=== PATIENT | female | born 1975 ===

== ENCOUNTER 2016-09-26 07:20 | Emergency (ER) | payer MEDICAID, OTHER ==
[2016-09-26 07:20] VITALS: BMI 21.5
[2016-09-26 07:28] VITALS: RESP 20; TEMP 98.1
[2016-09-26] MEDS ORDERED: Albuterol-Ipratrop 3 mg / 0.5 (3 ml) UD ONE (07:50)
[2016-09-26] MEDS ORDERED: Albuterol-Ipratrop 3 mg / 0.5 (3 ml) UD INH STA ×3 (08:13→08:15)
[2016-09-26] MEDS ORDERED: Sodium Chloride 0.9% 1,000 ML IV STA (08:14)
[2016-09-26 08:36] LABS: BASO # 0.1 K/uL (0.0-0.2); BASO % 0.7 % (0.0-2.0); EOS # 0.9 K/uL (0.0-0.7); EOS % 12.4 % (0.0-4.0); HEMATOCRIT 41.9 % (34.0-47.0); LYMPH # 1.5 K/uL (1.0-4.3); LYMPH % 19.6 % (20.0-40.0); MEAN CELL VOLUME 95.9 fl (81.0-99.0); MEAN CORPUSCULAR HEMOGLOBIN 32.5 pg (27.0-31.0); MEAN CORPUSCULAR HGB CONC 33.9 g/dL (33.0-37.0); MEAN PLATELET VOLUME 7.8 fl (7.2-11.7); MONO # 0.6 K/uL (0.0-0.8); NEUT # 4.5 K/uL (1.8-7.0); NEUT % 59.3 % (50.0-75.0); RED CELL DISTRIBUTION WIDTH 12.8 % (11.5-14.5); WHITE BLOOD COUNT 7.5 K/uL (4.8-10.8)
--- NOTE | 2016-09-26 08:56 | ED PDOC ---
HPI: General Adult Time Seen by Provider: 09/26/16 07:59 Chief Complaint (Nursing): Shortness Of Breath Chief Complaint (Provider): Shortness Of Breath History Per: Patient History/Exam Limitations: no limitations Onset/Duration Of Symptoms: Days (x2 weeks) Current Symptoms Are (Timing): Still Present Additional Complaint(s): 41 y/o female with a past medical history of Asthma presents to the emergency department with a complaint of difficulty breathing, shortness of breath, cough , sputum (clear), and itchiness of the chest x2 weeks. Reports using albuterol nebulizer and pump without the relief of symptoms; pain worsened since. States she had not received a flu shot or seen a doctor yet. Denies nausea, vomiting, chest pain, fever, and chills. PMD: Dr. Simone Sheffield MD Past Medical History Reviewed: Historical Data, Nursing Documentation, Vital Signs Vital Signs: Last Vital Signs Temp 98.1 F 09/26/16 08:00 Pulse 96 H 09/26/16 08:00 Resp 20 09/26/16 08:00 BP 117/81 09/26/16 08:00 Pulse Ox 96 09/26/16 08:59 - Medical History PMH: Asthma - Surgical History Surgical History: No Surg Hx - Family History Family History: States: Unknown Family Hx - Social History Current smoker - smoking cessation education provided: No Alcohol: None Drugs: Denies - Home Medications Home Medications: Ambulatory Orders Medication Instructions Recorded Nitrofurantoin Macrocrystals 100 mg PO BID #14 cap 09/19/14 [Macrobid] Phenazopyridine HCl [Pyridium] 100 mg PO TID #6 tab 09/19/14 Albuterol 1 puff IH Q4 PRN #1 inh 03/16/15 Prednisone 50 mg PO DAILY #4 tab 03/16/15 Albuterol HFA [Ventolin HFA 90 2 puff IH Q4H #1 puff 06/02/15 mcg/actuation (8 g)] Prednisone 10 mg PO TID #15 tab 06/02/15 Albuterol HFA [Ventolin HFA 90 2 puff IH [id number] PRN #0 puff 07/21/15 mcg/actuation (8 g)] Methylprednisolone [Medrol Dose 4 mg PO DAILY #21 mg 07/21/15 Pack (21 tabs)] Albuterol 0.083% [Albuterol 0.083% 2.5 mg IH Q8 PRN #100 neb 08/10/15 Inhal Loraine (2.5 mg/3 ml) UD] DiphenhydrAMINE [Benadryl] 2 tab PO Q4 PRN #24 cap 08/10/15 Famotidine [Pepcid] 20 mg PO BID #10 tab 08/10/15 Mask, Face [Nebulizer Aerosol Mask 1 dev XX PRN PRN #1 dev 08/10/15 Adult] Nebulizer [Aeroeclipse II] 1 each MC Q8 PRN #1 each 08/10/15 Promethazine/Codeine 5 ml PO Q12 PRN #100 ml 08/10/15 [Codeine/Promethazine 10 MG/5 Ml-6.25 MG/5 Ml] predniSONE [predniSONE Tab] 3 tab PO DAILY #15 tab 08/10/15 Albuterol Sulfate [Proair Hfa] 2 puff IH Q4H PRN #1 unit 09/26/16 predniSONE [predniSONE Tab] 40 mg PO DAILY #10 tab 09/26/16 - Allergies Allergies/Adverse Reactions: Allergies Allergy/AdvReac Type Severity Reaction Status Date / Time levofloxacin [From Levaquin] Allergy RASH Verified 09/26/16 07:59 Review of Systems ROS Statement: Except As Marked, All Systems Reviewed And Found Negative Constitutional: Negative for: Fever, Chills Cardiovascular: Positive for: Other (Itchiness chest sensation). Negative for: Chest Pain Respiratory: Positive for: Cough, Shortness of Breath, Sputum (Clear) Gastrointestinal: Negative for: Nausea, Vomiting Physical Exam - Reviewed Nursing Documentation Reviewed: Yes Vital Signs Reviewed: Yes - Physical Exam Appears: Positive for: Non-toxic, No Acute Distress Head Exam: Positive for: ATRAUMATIC, NORMOCEPHALIC Skin: Positive for: Normal Color, Warm, Dry Neck: Positive for: Normal, Supple Cardiovascular/Chest: Positive for: Regular Rate, Rhythm. Negative for: Murmur Respiratory: Positive for: Wheezing (b/l diffuse inspiratory and expiratory high pitch wheezing), Other (Mild labored breathing) Gastrointestinal/Abdominal: Positive for: Normal Exam, Soft. Negative for: Tenderness Extremity: Positive for: Normal ROM. Negative for: Pedal Edema, Swelling Neurologic/Psych: Positive for: Alert, Oriented - Laboratory Results Result Diagrams: 09/26/16 08:28 09/26/16 08:28 - ECG O2 Sat by Pulse Oximetry: 96 (RA) Pulse Ox Interpretation: Normal - Progress Condition: Re-examined, Improving,but remains with symptoms Medical Decision Making Medical Decision Making: Time: 7:59 Initial impression: Acute Asthma Attack Initial plan: --Basic Metabolic Panel --ED Urine (POC) --Duoneb 3 ml INH Stat --Duoneb 3 ml INH Stat --Duoneb 3 ml INH Stat --Methylprednisolone 125 mg IVP --Sodium Chloride 1,000 ml IV 1,000 mls/hr --IV Insertion (Saline Lock) --Peak Flow Pre/Post TX --Peak Flow Pre/Post TX --Revaluation Scribe Attestation: Documented by Gabbi Manriquez, acting as a scribe for Roxana Suresh MD. Provider Scribe Attestation: All medical record entries made by the Scribe were at my direction and personally dictated by me. I have reviewed the chart and agree that the record accurately reflects my personal performance of the history, physical exam, medical decision making, and the department course for this patient. I have also personally directed, reviewed, and agree with the discharge instructions and disposition. 9.40a - PF improved from 150 to 350 (within 70-90% of predicted). Will d/c Disposition - Clinical Impression Clinical Impression: Asthma attack - Patient ED Disposition Is Patient to be Admitted: No Doctor Will See Patient In The: Office Counseled Patient/Family Regarding: Diagnosis, Need For Followup, Rx Given - Disposition Referrals: Simone Sheffield MD [Family Provider] - Disposition: Routine/Home Disposition Time: 09:44 Condition: IMPROVED Prescriptions: Albuterol Sulfate [Proair Hfa] 2 puff IH Q4H PRN #1 unit PRN Reason: Wheezing predniSONE [predniSONE Tab] 40 mg PO DAILY #10 tab - POA Present On Arrival: None
[2016-09-26 08:57] LABS: BLOOD UREA NITROGEN 21 mg/dl (7-17); CALCIUM 8.9 mg/dL (8.4-10.2); CARBON DIOXIDE 19 mmol/L (22-30); CHLORIDE 109 mmol/L (98-107); GFR AFRICAN-AMERICAN > 60; POTASSIUM 4.4 MMOL/L (3.6-5.0); SODIUM 138 mmol/l (132-148)
[2016-09-26 09:04] LABS: GLUCOSE,RANDOM 97 mg/dL (65-105)
[2016-09-26 10:17] VITALS: BP 129/76; PULSE 98; O2SAT 98
== END 2016-09-26 10:10 | disposition home or self-care (01) ==
LOC: H.ER 07:20
DX: J45.909 Unspecified asthma, uncomplicated (principal); Z72.0 Tobacco use

== ENCOUNTER 2016-10-17 22:49 | Emergency (ER) | payer OTHER ==
[2016-10-17 22:50] VITALS: BMI 21.5
[2016-10-17 23:07] VITALS: BP 143/73; TEMP 98.2; O2SAT 97
[2016-10-17] MEDS ORDERED: Albuterol-Ipratrop 3 mg / 0.5 (3 ml) UD INH STA (23:28)
--- NOTE | 2016-10-17 23:33 | ED PDOC ---
HPI: SOB/CHF/COPD Time Seen by Provider: 10/17/16 23:14 Chief Complaint (Nursing): Shortness Of Breath History Per: Patient Additional Complaint(s): Pt. states when she went outside today she came in contact with pollen and she developed chest tightness and cough. States she's been taking her ProAir and albuterol neb treatments without relief. Denies hemoptysis, fever, hx of admissions for asthma, previous intubations. Past Medical History Reviewed: Historical Data, Nursing Documentation, Vital Signs Vital Signs: Last Vital Signs Temp 98.2 F 10/17/16 23:05 Pulse 68 10/17/16 23:37 Resp 16 10/17/16 23:17 BP 143/73 10/17/16 23:05 Pulse Ox 97 10/18/16 00:12 - Medical History PMH: Asthma - Family History Family History: States: No Known Family Hx - Home Medications Home Medications: Ambulatory Orders Medication Instructions Recorded Nitrofurantoin Macrocrystals 100 mg PO BID #14 cap 09/19/14 [Macrobid] Phenazopyridine HCl [Pyridium] 100 mg PO TID #6 tab 09/19/14 Albuterol 1 puff IH Q4 PRN #1 inh 03/16/15 Prednisone 50 mg PO DAILY #4 tab 03/16/15 Albuterol HFA [Ventolin HFA 90 2 puff IH Q4H #1 puff 06/02/15 mcg/actuation (8 g)] Prednisone 10 mg PO TID #15 tab 06/02/15 Albuterol HFA [Ventolin HFA 90 2 puff IH [id number] PRN #0 puff 07/21/15 mcg/actuation (8 g)] Methylprednisolone [Medrol Dose 4 mg PO DAILY #21 mg 07/21/15 Pack (21 tabs)] Albuterol 0.083% [Albuterol 0.083% 2.5 mg IH Q8 PRN #100 neb 08/10/15 Inhal Loraine (2.5 mg/3 ml) UD] DiphenhydrAMINE [Benadryl] 2 tab PO Q4 PRN #24 cap 08/10/15 Famotidine [Pepcid] 20 mg PO BID #10 tab 08/10/15 Mask, Face [Nebulizer Aerosol Mask 1 dev XX PRN PRN #1 dev 08/10/15 Adult] Nebulizer [Aeroeclipse II] 1 each MC Q8 PRN #1 each 08/10/15 Promethazine/Codeine 5 ml PO Q12 PRN #100 ml 08/10/15 [Codeine/Promethazine 10 MG/5 Ml-6.25 MG/5 Ml] predniSONE [predniSONE Tab] 3 tab PO DAILY #15 tab 08/10/15 Albuterol Sulfate [Proair Hfa] 2 puff IH Q4H PRN #1 unit 09/26/16 predniSONE [predniSONE Tab] 40 mg PO DAILY #10 tab 09/26/16 - Allergies Allergies/Adverse Reactions: Allergies Allergy/AdvReac Type Severity Reaction Status Date / Time levofloxacin [From Levaquin] Allergy RASH Verified 09/26/16 07:59 Review of Systems ROS Statement: Except As Marked, All Systems Reviewed And Found Negative Respiratory: Positive for: Shortness of Breath, Wheezing Physical Exam - Physical Exam Appears: Positive for: Well, Non-toxic, No Acute Distress (speaking in full sentences) Head Exam: Positive for: ATRAUMATIC, NORMAL INSPECTION, NORMOCEPHALIC Skin: Positive for: Normal Color, Warm. Negative for: Rash ENT: Positive for: Normal ENT Inspection. Negative for: Pharyngeal Erythema, Tonsillar Exudate, Tonsillar Swelling Neck: Positive for: Normal, Painless ROM Cardiovascular/Chest: Positive for: Regular Rate, Rhythm Respiratory: Positive for: Wheezing (b/l expiratory wheezing). Negative for: Decreased Breath Sounds, Accessory Muscle Use, Crackles, Rales, Rhonchi, Respiratory Distress Back: Positive for: Normal Inspection Extremity: Positive for: Normal ROM. Negative for: Calf Tenderness (b/l) Neurologic/Psych: Positive for: Alert, Oriented - ECG ECG: Positive for: Interpreted By [place] ECG Rhythm: Positive for: Sinus Rhythm. Negative for: ST/T Changes Rate: 68 O2 Sat by Pulse Oximetry: 97 Nebulizer Treatments/Peak Flow - Duonebs Number of Bronchodilator Doses given?: 3 - Steroid Treatment Steroid: Oral Disposition - Clinical Impression Clinical Impression: Bronchospasm - Patient ED Disposition Is Patient to be Admitted: Transfer of Care (Signed out to Radha HEREDIA pending CXR and re-evaluation.) - Disposition Disposition Time: 00:00 Condition: STABLE
[2016-10-17 23:37] VITALS: PULSE 68
[2016-10-17 23:45] VITALS: RESP 16
--- NOTE | 2016-10-18 00:12 | ED PDOC ---
- ECG O2 Sat by Pulse Oximetry: 97 Pulse Ox Interpretation: Normal - Other Rad CXR X-Ray: Interpreted by Me, Viewed By Me X-Ray Interpretation: no acute finding Medical Decision Making Medical Decision Making: Case was signed out to automobile and property underwriter from [employer] pending CXR. CXR is negative. Patient feels better after treatments given in ED. Prescription given for Ventolin inhaler and Medrol Dosepak. Patient was instructed to follow up with primary doctor in 2-3 days. Disposition Counseled Patient/Family Regarding: Studies Performed, Diagnosis, Need For Followup, Rx Given - Clinical Impression Clinical Impression: Asthma - POA Present On Arrival: None - Disposition Referrals: Simone Sheffield MD [Family Provider] - Disposition: Routine/Home Disposition Time: 01:13 Condition: IMPROVED Additional Instructions: Take prescription medications as directed. Follow up in 2-3 days with primary care doctor. Prescriptions: Albuterol HFA [Ventolin HFA 90 mcg/actuation (8 g)] 1 puff IH ASDIR #1 unit Methylprednisolone [Medrol Dose Pack (21 tabs)] 4 mg PO ASDIR #21 mg Instructions: Asthma (ED)
--- NOTE | 2016-10-18 09:20 | RAD ---
HISTORY: cough COMPARISON: Chest x-ray performed 03/16/15 TECHNIQUE: Chest PA and lateral FINDINGS: LUNGS: No focal consolidation. Please note that chest x-ray has limited sensitivity for the detection of pulmonary masses. PLEURA: No significant pleural effusion identified. No definite pneumothorax . CARDIOVASCULAR: The cardiomediastinal silhouette appears within normal limits of size. OSSEOUS STRUCTURES: No acute osseous abnormality identified. VISUALIZED UPPER ABDOMEN: Unremarkable. OTHER FINDINGS: None. IMPRESSION: No focal consolidation, significant pleural effusion, or definite pneumothorax identified.
--- NOTE | 2016-10-23 07:16 | CARD ---
APPROVED REPORT EKG Measurement Heart [id number] <Conclusion> Normal sinus rhythm with sinus arrhythmia Normal ECG
== END 2016-10-18 01:21 | disposition home or self-care (01) ==
LOC: H.ER 22:49
DX: J98.01 Acute bronchospasm (principal); R05 Cough; J45.909 Unspecified asthma, uncomplicated

== ENCOUNTER 2016-11-04 11:14 | Emergency (ER) | payer OTHER ==
[2016-11-04 11:14] VITALS: BMI 21.5
[2016-11-04 11:19] VITALS: BP 120/68; PULSE 69; RESP 18; TEMP 98.3; O2SAT 98
--- NOTE | 2016-11-04 11:40 | ED PDOC ---
HPI: Female Pain Time Seen by Provider: 11/04/16 11:38 Chief Complaint (Nursing): Female Genitourinary Chief Complaint (Provider): dysuria History Per: Patient Additional Complaint(s): 41-year-old female presents to emergency department with dysuria and suprapubic pain that started earlier today. Patient is concerned she may have urinary tract infection. Patient has had similar symptoms in the past. She denies fever or chills, denies nausea or vomiting, no associated vaginal discharge or concern for STDs. Past Medical History Reviewed: Historical Data, Nursing Documentation, Vital Signs Vital Signs: Last Vital Signs Temp 98.3 F 11/04/16 11:18 Pulse 69 11/04/16 11:18 Resp 18 11/04/16 11:18 BP 120/68 11/04/16 11:18 Pulse Ox 98 11/04/16 11:18 - Medical History PMH: Asthma - Family History Family History: States: No Known Family Hx - Living Arrangements Living Arrangements: With Family - Home Medications Home Medications: Ambulatory Orders Medication Instructions Recorded Nitrofurantoin Macrocrystals 100 mg PO BID #14 cap 09/19/14 [Macrobid] Phenazopyridine HCl [Pyridium] 100 mg PO TID #6 tab 09/19/14 Albuterol 1 puff IH Q4 PRN #1 inh 03/16/15 Prednisone 50 mg PO DAILY #4 tab 03/16/15 Albuterol HFA [Ventolin HFA 90 2 puff IH Q4H #1 puff 06/02/15 mcg/actuation (8 g)] Prednisone 10 mg PO TID #15 tab 06/02/15 Albuterol HFA [Ventolin HFA 90 2 puff IH [id number] PRN #0 puff 07/21/15 mcg/actuation (8 g)] Methylprednisolone [Medrol Dose 4 mg PO DAILY #21 mg 07/21/15 Pack (21 tabs)] Albuterol 0.083% [Albuterol 0.083% 2.5 mg IH Q8 PRN #100 neb 08/10/15 Inhal Loraine (2.5 mg/3 ml) UD] DiphenhydrAMINE [Benadryl] 2 tab PO Q4 PRN #24 cap 08/10/15 Famotidine [Pepcid] 20 mg PO BID #10 tab 03/12/16 Mask, Face [Nebulizer Aerosol Mask 1 dev XX PRN PRN #1 dev 08/10/15 Adult] Nebulizer [Aeroeclipse II] 1 each MC Q8 PRN #1 each 08/10/15 Promethazine/Codeine 5 ml PO Q12 PRN #100 ml 08/10/15 [Codeine/Promethazine 10 MG/5 Ml-6.25 MG/5 Ml] predniSONE [predniSONE Tab] 3 tab PO DAILY #15 tab 08/10/15 Albuterol Sulfate [Proair Hfa] 2 puff IH Q4H PRN #1 unit 09/26/16 predniSONE [predniSONE Tab] 40 mg PO DAILY #10 tab 09/26/16 Albuterol HFA [Ventolin HFA 90 1 puff IH ASDIR #1 unit 10/18/16 mcg/actuation (8 g)] Methylprednisolone [Medrol Dose 4 mg PO ASDIR #21 mg 10/18/16 Pack (21 tabs)] Nitrofurantoin Macrocrystals 100 mg PO BID #14 tab 11/04/16 [Macrobid] Phenazopyridine HCl [Pyridium] 200 mg PO TID PRN #6 tablet 11/04/16 - Allergies Allergies/Adverse Reactions: Allergies Allergy/AdvReac Type Severity Reaction Status Date / Time levofloxacin [From Levaquin] Allergy RASH Verified 09/26/16 07:59 Review of Systems ROS Statement: Except As Marked, All Systems Reviewed And Found Negative Constitutional: Negative for: Fever, Chills Respiratory: Negative for: Cough Gastrointestinal: Positive for: Abdominal Pain. Negative for: Nausea, Vomiting Genitourinary Female: Positive for: Dysuria, Frequency. Negative for: Vaginal Discharge, Vaginal Bleeding Physical Exam - Reviewed Nursing Documentation Reviewed: Yes Vital Signs Reviewed: Yes - Physical Exam Appears: Positive for: Well, Non-toxic, No Acute Distress Skin: Negative for: Rash Eye Exam: Positive for: Normal appearance Cardiovascular/Chest: Positive for: Regular Rate, Rhythm Respiratory: Positive for: Normal Breath Sounds Gastrointestinal/Abdominal: Positive for: Tenderness (Mild suprapubic tenderness with no rebound or guarding, no distention) Back: Negative for: L CVA Tenderness, R CVA Tenderness Neurologic/Psych: Positive for: Alert, Oriented - Laboratory Results Urine POC: Negative Urine dip results: Positive for: Leukocyte Esterase (small), Nitrate (positive) - ECG O2 Sat by Pulse Oximetry: 98 Pulse Ox Interpretation: Normal Medical Decision Making Medical Decision Makin41 year old with dysuria Plan: Urine dip and Urine culture Patient given initial doses of Macrobid and Pyridium and ED along with prescriptions for same medications. She was advised to follow-up in 1-2 days with primary doctor. Disposition - Clinical Impression Clinical Impression: Urinary tract infection - Patient ED Disposition Is Patient to be Admitted: No Counseled Patient/Family Regarding: Studies Performed, Diagnosis - Disposition Referrals: Simone Sheffield MD [Family Provider] - Disposition: Routine/Home Disposition Time: 12:09 Condition: STABLE Additional Instructions: Take prescription medications as directed. Drink plenty of fluids. Follow up with primary doctor in 1-2 days. Prescriptions: Nitrofurantoin Macrocrystals [Macrobid] 100 mg PO BID #14 tab Phenazopyridine HCl [Pyridium] 200 mg PO TID PRN #6 tablet PRN Reason: Bladder Spasm Instructions: Urinary Tract Infection in Women (ED)
== END 2016-11-04 12:21 | disposition home or self-care (01) ==
LOC: H.ER 11:14
DX: N39.0 Urinary tract infection, site not specified (principal); J45.909 Unspecified asthma, uncomplicated